=== PATIENT | female | born 1995 | race African-American/Black ===

== ENCOUNTER 2022-01-15 10:10 | Emergency (ER) | payer MEDICAID ==
[~2022-01-15] VITALS: Ht 160 cm; Wt 68.0 kg
[2022-01-15] MEDS ORDERED: IBUPROFEN 600MG TABLET PO ONE (10:30)
[2022-01-15 10:38] VITALS: BP 104/78
[2022-01-15] MEDS ORDERED: AMOX-424 MT (10:54)
[2022-01-15] MEDS ORDERED: NEOM28.37 TP (10:54)
== END 2022-01-15 11:12 | disposition home or self-care (01) ==
LOC: ER 10:10
DX: M79.675 Pain in left toe(s) (principal)
CPT/HCPCS: 99283

== ENCOUNTER 2022-05-14 08:26 | Emergency (ER) | payer BC, MEDICAID ==
[~2022-05-14] VITALS: Ht 167.6 cm; Wt 59.0 kg
[~2022-05-14 08:26] MED LIST: AMOX-424 MT; NEOM28.37 TP
[2022-05-14 08:30] VITALS: BP 113/67
== END 2022-05-14 09:37 | disposition left against medical advice (07) ==
LOC: ER 08:47
DX: Z53.21 Procedure and treatment not carried out due to patient leaving prior to being seen by health care provider (principal)